=== PATIENT | male | born 1975 | race Hispanic/Latino ===

== ENCOUNTER 2024-03-10 14:25 | Outpatient (CLI) | payer OTHER ==
[2024-03-10 15:18] LABS: #Basophils 0.04 10x3/uL (0.0-0.2); %Basophils 0.6 % (0.0-1.0); %Eosinophils 0.4 % (0.0-10.0); %Monocytes 8.1 % (0.0-10.0); %Neutrophils 51.6 % (42.0-75.0); Hematocrit 46.2 % (42.0-52.0); Hemoglobin 15.9 g/dL (14.0-18.0); Mean Corpuscular HGB CONC 34.4 g/dL (32.0-36.0); Mean Corpuscular Hemoglobin 28.8 pg (27.0-31.0); Mean Corpuscular Volume 83.5 fL (78.0-98.0); Mean Platelet Volume 10.9 fL (7.4-10.4); Platelet Count 334 10x3/uL (130-400); RBC Distribution Width 13.4 % (11.5-14.5); Red Blood Cell (RBC) Count 5.53 mill/uL (4.70-6.10)
== END 2024-03-10 14:26 | disposition home or self-care (01) ==
LOC: LABBT 14:25
PROVIDERS: ATTEND Orthopaedic Surgery Hand Surgery
DX: Z01.812 Encounter for preprocedural laboratory examination (principal); S62.022K Displaced fracture of middle third of navicular [scaphoid] bone of left wrist, subsequent encounter for fracture with nonunion
CPT/HCPCS: 85025

== ENCOUNTER 2024-04-17 16:08 | Outpatient (CLI) | payer OTHER ==
[2024-04-17 16:54] LABS: #Basophils 0.04 10x3/uL (0.0-0.2); %Basophils 0.5 % (0.0-1.0); %Eosinophils 0.5 % (0.0-10.0); %Lymphocytes 46.2 % (21.0-51.0); %Monocytes 8.3 % (0.0-10.0); %Neutrophils 44.2 % (42.0-75.0); Hematocrit 46.8 % (42.0-52.0); Hemoglobin 16.4 g/dL (14.0-18.0); Mean Corpuscular Hemoglobin 29.3 pg (27.0-31.0); Mean Corpuscular Volume 83.6 fL (78.0-98.0); Mean Platelet Volume 10.9 fL (7.4-10.4); Platelet Count 356 10x3/uL (130-400); RBC Distribution Width 13.5 % (11.5-14.5)
== END 2024-04-17 16:09 | disposition home or self-care (01) ==
LOC: LABBT 16:08
PROVIDERS: ATTEND Orthopaedic Surgery Hand Surgery
DX: Z01.812 Encounter for preprocedural laboratory examination (principal); S62.032K Displaced fracture of proximal third of navicular [scaphoid] bone of left wrist, subsequent encounter for fracture with nonunion; S62.025A Nondisplaced fracture of middle third of navicular [scaphoid] bone of left wrist, initial encounter for closed fracture; M87.03 Idiopathic aseptic necrosis of radius, ulna and carpus; T84.84XA Pain due to internal orthopedic prosthetic devices, implants and grafts, initial encounter
CPT/HCPCS: 85025

== ENCOUNTER 2024-04-20 11:51 | Observation (INO) | payer OTHER ==
[2024-04-20] MEDS ORDERED: Midazolam HCl 2 mg/2 ml Vial ONE (12:26)
[2024-04-20] MEDS ORDERED: fentaNYL 50 mcg/mL 1 mL Vial ONE (12:26)
[2024-04-20] MEDS ORDERED: Ropivacaine 0.5% HCl/PF (150 MG/30 ML VIAL) ONE (12:27)
[2024-04-20] MEDS ORDERED: fentaNYL PF 100 MCG/2 ML SYRINGE ONE (13:23)
[2024-04-20] MEDS ORDERED: Lidocaine 1% PF 5 ML VIAL ONE ×2 (13:24→13:47)
[2024-04-20] MEDS ORDERED: Bacitracin Zinc Ointment 30 gm TUBE ONE (13:24)
[2024-04-20] MEDS ORDERED: Bupivacaine PF 0.5% 30 ML VIAL ONE (13:24)
[2024-04-20] MEDS ORDERED: PROPOFOL 20 ML ONE (13:24)
[2024-04-20] MEDS ORDERED: Sodium Chloride 0.9% 100 ML ONE (13:33)
[2024-04-20] MEDS ORDERED: CEFAZOLIN 2 GM VIAL ONE (13:33)
[2024-04-20] MEDS ORDERED: Sterile Water 10 ML ONE (13:42)
[2024-04-20] MEDS ORDERED: Dexamethasone 20 MG/5 ML VIAL ONE (14:05)
[2024-04-20] MEDS ORDERED: PHENYLEPHRINE-NS 100 MCG/ML 10 ML SYRINGE ONE (14:59)
[2024-04-20] MEDS ORDERED: Esmolol 100 MG/10 ML VIAL ONE (16:30)
[2024-04-20] MEDS ORDERED: Ondansetron PF 4 MG/2 ML Vial ONE (17:08)
[2024-04-20] MEDS ORDERED: Ketorolac Tromethamine 30 MG (1 mL) VIAL ONE (17:09)
[2024-04-20] MEDS ORDERED: PACU-Morphine 4MG/ML VIAL SLOW IVP PRN (17:59)
[2024-04-20] MEDS ORDERED: Promethazine HCl 25 MG/ML VIAL IM PRN ×2 (17:59→18:22)
[2024-04-20] MEDS ORDERED: HYDROmorphone 2 MG/ML VIAL SLOW IVP PRN (17:59)
[2024-04-20] MEDS ORDERED: Morphine Sulfate 2 MG/ML SYRINGE SLOW IVP PRN (17:59)
[2024-04-20] MEDS ORDERED: Ondansetron HCl/PF 4 MG/2 ML Vial IVP PRN (17:59)
[2024-04-20] MEDS ORDERED: Morphine 4 MG/ML VIAL SLOW IVP PRN (18:22)
[2024-04-20] MEDS ORDERED: Milk Of Magnesia 30 ML UDCUP PO PRN (18:22)
[2024-04-20] MEDS ORDERED: fentaNYL 50 mcg/mL 1 mL Vial SLOW IVP PRN (18:22)
[2024-04-20] MEDS ORDERED: Acetaminophen 325 MG TAB PO PRN (18:22)
[2024-04-20] MEDS ORDERED: Ondansetron PF 4 MG/2 ML Vial IVP PRN (18:22)
[2024-04-20] MEDS ORDERED: Meperidine HCl/PF 25 MG (1 mL) VIAL IM PRN (18:27)
[2024-04-20] MEDS ORDERED: Communication Order-Pharmacy FS SCH (18:30)
[2024-04-20 20:19] VITALS: BMI 24.6
[2024-04-20] MEDS: TETANUS, DIPHTHERIA TOX,ADULT (TDVAX) 0.5 ML VIAL IM ONE (20:48)
[2024-04-20] MEDS: HYDROcodone/Acetaminophen 5/325 mg Tablet PO PRN (20:53)
[2024-04-20] MEDS: Aspirin 81 mg Enteric Coated Tablet PO SCH (20:53)
[2024-04-20] MEDS: CEFAZOLIN 2 GM in Sodium Chloride 0.9% 100 ML IVPB SCH (20:53)
[2024-04-21] MEDS: traMADol HCl 50 MG TAB PO PRN (04:28)
[2024-04-21] MEDS: Acetaminophen/Codeine 30-300mg Tablet PO PRN (08:31)
[2024-04-21 16:49] VITALS: BP 119/72; TEMP 98.4
[2024-04-21] MEDS: FLU (Fluarix Triv) TS24-25(6MOS UP)/PF 45 MCG/0.5 ML Syringe IM ONE (17:31)
== END 2024-04-21 17:46 | disposition home or self-care (01) ==
LOC: SDC 11:51 → SURG B 18:13
PROVIDERS: ADMIT Orthopaedic Surgery Hand Surgery; ATTEND Orthopaedic Surgery Hand Surgery
PROC: 0PSN0ZZ Reposition Left Carpal, Open Approach (ICD-10-PCS; principal; 2024-04-21)
PROC: 0PUN07Z Supplement Left Carpal with Autologous Tissue Substitute, Open Approach (ICD-10-PCS; 2024-04-21)
PROC: 3E0T3BZ Introduction of Anesthetic Agent into Peripheral Nerves and Plexi, Percutaneous Approach (ICD-10-PCS; 2024-04-21)
DX: S62.032K Displaced fracture of proximal third of navicular [scaphoid] bone of left wrist, subsequent encounter for fracture with nonunion (principal); S62.025K Nondisplaced fracture of middle third of navicular [scaphoid] bone of left wrist, subsequent encounter for fracture with nonunion; T84.84XA Pain due to internal orthopedic prosthetic devices, implants and grafts, initial encounter; M87.03 Idiopathic aseptic necrosis of radius, ulna and carpus; L72.0 Epidermal cyst; M19.132 Post-traumatic osteoarthritis, left wrist; M87.039 Idiopathic aseptic necrosis of unspecified carpus; X58.XXXA Exposure to other specified factors, initial encounter
CPT/HCPCS: C1713; C1889; C1894; J0665; J1100; J1885; J2250; J2405; J2704; J2795; J3010